=== PATIENT | female | born 1955 | race Caucasian/White ===

== ENCOUNTER 2020-02-15 17:53 | Emergency (ER) | payer OTHER ==
[~2020-02-15] VITALS: Ht 152.4 cm; Wt 97.5 kg
[~2020-02-15 17:53] MED LIST: GLU500 PO; LEVO0.173 PO; SERT50TA PO; SIMV-31 PO
[2020-02-15 18:30] VITALS: BP 115/59
--- NOTE | 2020-02-15 19:22 | NUR ---
CALLED PT NO RESPONSE.
--- NOTE | 2020-02-15 19:34 | NUR ---
TO ED 01, AMBULATORY.
[2020-02-15 19:35] LABS: BASOPHILS % (AUTO) 0.5 % (0.0-2.0); EOSINOPHILS # (AUTO) 0.1 K/uL (0-0.4); EOSINOPHILS % (AUTO) 1.4 % (0.0-4.0); HEMATOCRIT 40.8 % (36-48); HEMOGLOBIN 13.6 g/dL (12.0-16.0); LYMPHOCYTES # (AUTO) 1.7 K/uL (2.5-16.5); MEAN CORPUSCULAR HEMOGLOBIN 28 pg (27-31); MEAN CORPUSCULAR HGB CONC 33 g/dL (33-37); MEAN CORPUSCULAR VOLUME 82.7 fL (80-94); MONOCYTES # (AUTO) 0.5 K/uL (0.8-1.0); MONOCYTES % (AUTO) 6.1 % (1.7-9.3); NEUTROPHILS # (AUTO) 6.4 K/uL (1.8-7.7); PLATELET COUNT (AUTO) 205 K/uL (140-450); RED BLOOD CELL COUNT(AUTO) 4.93 MIL/uL (4.20-5.40); RED CELL DISTRIBUTION WIDTH 14.9 % (11.6-13.7); WHITE BLOOD COUNT (AUTO) 8.8 K/uL (4.8-10.8)
--- NOTE | 2020-02-15 19:41 | NUR ---
XR AT BEDSIDE.
[2020-02-15 19:54] LABS: ALBUMIN 3.3 g/dL (3.4-5.0); ANION GAP 8.6 (8-16); CARBON DIOXIDE 31.2 mmol/L (21-32); CREATININE 0.9 mg/dL (0.6-1.3); POTASSIUM 3.8 mmol/L (3.5-5.1); TOTAL BILIRUBIN 0.3 mg/dL (0.0-1.0)
[2020-02-15] MEDS ORDERED: KETOROLAC 30 MG/ML VIAL IVP ONE (20:00)
[2020-02-15] MEDS ORDERED: PANTOPRAZOLE 40 MG INJ VIAL IVP ONE (20:00)
[2020-02-15] MEDS ORDERED: NACL 0.9% 1,000 ML IV ONE (20:00)
--- NOTE | 2020-02-15 20:20 | NUR ---
64 Y/O FEMALE C/O EPIGASTRIC AND BACK PAIN X 3 DAYS. RATES PAIN 7/10 AND DESCRIBES IT BURNING. ABD IS TENDERNESS THROUGHOUT ENTIRE ABD. ACTIVE BS, ROUND AND SOFT. VSS. A&O X4. NO SOB. DENIES ANY CHEST PAIN. HEART SOUND S1S2 PRESENT. DENIES TAKING ANY PAIN MEDS. STEADY GAIT. DENIES ANY N,V,D, OR DECREASE IN APPETITE. PMH: CHF, DM, PARTIAL THYROID REMOVAL, PERICARDITITS, HTN, HIGH CHOLESTEROL, DEPRESSION. NKA.
--- NOTE | 2020-02-15 20:20 | NUR ---
LUNG SOUNDS CLEAR ALL THROGUHOUT. NO EDEMA PRESENT ON EXTREMETIES.
--- NOTE | 2020-02-15 20:49 | NUR ---
PT TRANSFER TO XR VIA W/C.
--- NOTE | 2020-02-15 21:00 | NUR ---
PT RETURNED BACK FROM XR VIA W/C.
[2020-02-15 21:23] VITALS: BP 121/54
--- NOTE | 2020-02-15 21:23 | NUR ---
Patient discharged with v/s stable. Written and verbal after care instructions given and explained. Patient alert, oriented and verbalized understanding of instructions. Ambulatory with steady gait. All questions addressed prior to discharge. ID band removed. Patient advised to follow up with PMD. Rx of TRAMADOL, MOTRIN, AND PROTONIX given. Patient educated on indication of medication including possible reaction and side effects. Opportunity to ask questions provided and answered.
== END 2020-02-15 21:23 | disposition home or self-care (01) ==
LOC: MED 17:53
DX: K21.9 Gastro-esophageal reflux disease without esophagitis (principal); E78.5 Hyperlipidemia, unspecified; E03.9 Hypothyroidism, unspecified; F41.9 Anxiety disorder, unspecified; F32.9 Major depressive disorder, single episode, unspecified; I10 Essential (primary) hypertension; I50.9 Heart failure, unspecified; R52 Pain, unspecified; Z79.899 Other long term (current) drug therapy
CPT/HCPCS: 36415; 71045; 74022; 80053; 82550; 84484; 85025; 93005; 96374; 96375; 99285; C9113; J1885; J7030; Q0092

== ENCOUNTER 2022-06-08 01:40 | Emergency (ER) | payer OTHER ==
[~2022-06-08] VITALS: Ht 152.4 cm; Wt 99.8 kg
[~2022-06-08 01:40] MED LIST changes: -LEVO0.173 PO; +LISI2.5T12 PO; +SYN.075 PO
[2022-06-08 01:47] VITALS: BP 135/61
--- NOTE | 2022-06-08 01:57 | NUR ---
PT TO CHAIR B
--- NOTE | 2022-06-08 03:09 | NUR ---
PT TAKEN TO BED 5
--- NOTE | 2022-06-08 03:53 | NUR ---
66/F BIB SELF C/C LEFT EYE PAIN AND HEADACHE [id number] S/P METAL BAR FALLING ONTO HER FACE. EYELID CUT AND REPORTS NAUSEA . SWELLING AND DISCOLORATION NOTED. NO BLEEDING AT THIS TIME. PAIN IS 8/10 AND THROBBING. PATIENT AAOX4 AND AMBULATORY. RR APPEAR TO BE EVEN AND UNLABORED. DOESNT APPEAR TO BE IN DISTRESS. BED LOW AND LOCKED. PMHX DM, CHF, COPD NKA
--- NOTE | 2022-06-08 03:53 | NUR ---
Note undone in EDM - 06/08/22 at 0411 by RAZA 66/F BIB SELF C/C LEFT EYE PAIN AND HEADACHE [id number] S/P METAL BAR FALLING ONTO HER FACE. EYELID CUT AND REPORTS NAUSEA . SWELLING AND DISCOLORATION NOTED. NO BLEEDING AT THIS TIME. PAIN IS 8/10 AND THROBBING. PATIENT AAOX4 AND AMBULATORY. RR APPEAR TO BE EVEN AND UNLABORED. DOESNT APPEAR TO BE IN DISTRESS. BED LOW AND LOCKED. RUSLAN SIDE RAILS AND SEIZURE PRECAUTIONS IN PLACE. PMHX DM, CHF, COPD NKA
[2022-06-08] MEDS ORDERED: ACETAMINOPHEN EXTRA STRENGTH 500 MG TAB PO ONE (04:15)
--- NOTE | 2022-06-08 04:25 | NUR ---
PATIENT MEDICATED PER ORDERS. TOLERATED WELL.
--- NOTE | 2022-06-08 04:27 | NUR ---
PT TAKEN TO CT
[2022-06-08] MEDS ORDERED: ACET-9800 PO (04:46)
--- NOTE | 2022-06-08 05:30 | NUR ---
Patient discharged with v/s stable. Written and verbal after care instructions given and explained. Patient alert, oriented and verbalized understanding of instructions. Ambulatory with steady gait. All questions addressed prior to discharge. ID band removed. Patient advised to follow up with PMD. Rx of ACETAMINOPHEN given.
[2022-06-08 05:31] VITALS: BP 135/51
== END 2022-06-08 05:30 | disposition home or self-care (01) ==
LOC: MED 01:40
DX: S01.112A Laceration without foreign body of left eyelid and periocular area, initial encounter (principal); J44.9 Chronic obstructive pulmonary disease, unspecified; I25.10 Atherosclerotic heart disease of native coronary artery without angina pectoris; E03.9 Hypothyroidism, unspecified; J45.909 Unspecified asthma, uncomplicated; W26.8XXA Contact with other sharp object(s), not elsewhere classified, initial encounter; Y93.89 Activity, other specified; Y92.89 Other specified places as the place of occurrence of the external cause; Y99.8 Other external cause status
CPT/HCPCS: 70450; 99284

== ENCOUNTER 2023-08-19 00:58 | Emergency (ER) | payer OTHER ==
[~2023-08-19] VITALS: Ht 152.4 cm; Wt 97.5 kg
[~2023-08-19 00:58] MED LIST changes: +ACET-9800 PO
[2023-08-19 01:02] VITALS: BP 100/51; PULSE 64; RESP 16; TEMP 97.4; O2SAT 98
[2023-08-19] MEDS ORDERED: FAMOTIDINE 20 MG TAB PO ONE (01:40)
[2023-08-19] MEDS ORDERED: ALUMINUM HYD/MAG/SIMETHICONE 30 ML UDC PO ONE (01:40)
[2023-08-19 01:56] LABS: BASOPHILS # (AUTO) 0.1 K/uL (0.00-0.22); BASOPHILS % (AUTO) 0.8 % (0.0-2.0); EOSINOPHILS # (AUTO) 0.2 K/uL (0-0.4); EOSINOPHILS % (AUTO) 1.8 % (0.0-4.0); HEMOGLOBIN 12.8 g/dL (12.0-16.0); LYMPHOCYTES # (AUTO) 2.3 K/uL (2.5-16.5); LYMPHOCYTES % (AUTO) 23.4 % (20.5-51.1); MEAN CORPUSCULAR HEMOGLOBIN 27 pg (27-31); MEAN CORPUSCULAR HGB CONC 33 g/dL (33-37); MEAN CORPUSCULAR VOLUME 82.2 fL (80-94); MONOCYTES # (AUTO) 0.8 K/uL (0.8-1.0); MONOCYTES % (AUTO) 7.9 % (1.7-9.3); NEUTROPHILS # (AUTO) 6.6 K/uL (1.8-7.7); NEUTROPHILS % (AUTO) 66.1 % (42.2-75.2); PLATELET COUNT (AUTO) 195 K/uL (140-450); RED BLOOD CELL COUNT(AUTO) 4.74 MIL/uL (4.20-5.40); RED CELL DISTRIBUTION WIDTH 14.8 % (11.6-13.7); WHITE BLOOD COUNT (AUTO) 9.9 K/uL (4.8-10.8)
[2023-08-19 02:11] LABS: ALANINE AMINOTRANSFERASE 25 U/L (12-78); ALBUMIN 3.2 g/dL (3.4-5.0); ALKALINE PHOSPHATASE 97 U/L (50-136); ANION GAP 9.2 (8-16); ASPARTATE AMINOTRANSFERASE 16 U/L (15-37); CARBON DIOXIDE 27.3 mmol/L (21-32); CHLORIDE 109 mmol/L (98-107); GFR ARICAN-AMERICAN 72 mL/min (>90); GFR NON ARICAN-AMERICAN 59 mL/min (>90); GLUCOSE 139 mg/dL (74-106); LIPASE 29 U/L (16-77); POTASSIUM 3.5 mmol/L (3.5-5.1); SODIUM SERUM 142 mmol/L (136-145); TOTAL BILIRUBIN 0.3 mg/dL (0.0-1.0); TOTAL PROTEIN, SERUM 6.1 g/dL (6.4-8.2); UREA NITROGEN, BLOOD 21 mg/dL (7-18)
[2023-08-19] MEDS ORDERED: FAMO-90 PO (04:32)
[2023-08-19 04:45] VITALS: BP 119/62; PULSE 65; RESP 18; O2SAT 95
== END 2023-08-19 04:45 | disposition home or self-care (01) ==
LOC: MED 00:58
DX: K29.70 Gastritis, unspecified, without bleeding (principal); K21.9 Gastro-esophageal reflux disease without esophagitis; J44.9 Chronic obstructive pulmonary disease, unspecified; E03.9 Hypothyroidism, unspecified; E11.9 Type 2 diabetes mellitus without complications; I50.9 Heart failure, unspecified; Z79.4 Long term (current) use of insulin; Z79.899 Other long term (current) drug therapy
CPT/HCPCS: 36415; 71045; 80053; 83690; 84484; 85025; 93005; 99285

== ENCOUNTER 2023-10-27 20:03 | Observation (INO) | payer OTHER ==
[~2023-10-27] VITALS: Ht 157.5 cm; Wt 80.7 kg
[~2023-10-27 20:03] MED LIST changes: +FAMO-90 PO
[2023-10-27 20:05] VITALS: BP 116/70; PULSE 66; RESP 16; TEMP 97.1; O2SAT 97
[2023-10-27] MEDS ORDERED: NITROGLYCERIN 0.4 MG TAB SL ONE (20:35)
[2023-10-27] MEDS ORDERED: ASPIRIN 81 MG TAB.CHEW PO ONE (21:15)
[2023-10-27 21:41] LABS: BASOPHILS # (AUTO) 0.1 K/uL (0.00-0.22); BASOPHILS % (AUTO) 0.9 % (0.0-2.0); EOSINOPHILS # (AUTO) 0.1 K/uL (0-0.4); EOSINOPHILS % (AUTO) 1.1 % (0.0-4.0); HEMATOCRIT 41.3 % (36-48); LYMPHOCYTES # (AUTO) 2.6 K/uL (2.5-16.5); LYMPHOCYTES % (AUTO) 22.9 % (20.5-51.1); MEAN CORPUSCULAR HEMOGLOBIN 28 pg (27-31); MEAN CORPUSCULAR HGB CONC 34 g/dL (33-37); MEAN CORPUSCULAR VOLUME 81.2 fL (80-94); MONOCYTES # (AUTO) 0.6 K/uL (0.8-1.0); MONOCYTES % (AUTO) 5.7 % (1.7-9.3); NEUTROPHILS # (AUTO) 7.8 K/uL (1.8-7.7); NEUTROPHILS % (AUTO) 69.4 % (42.2-75.2); PLATELET COUNT (AUTO) 205 K/uL (140-450); RED BLOOD CELL COUNT(AUTO) 5.09 MIL/uL (4.20-5.40); RED CELL DISTRIBUTION WIDTH 14.2 % (11.6-13.7); WHITE BLOOD COUNT (AUTO) 11.2 K/uL (4.8-10.8)
[2023-10-27 21:49] LABS: ANION GAP 11.7 (8-16); CALCIUM 8.9 mg/dL (8.5-10.1); CARBON DIOXIDE 27.7 mmol/L (21-32); CREATININE 0.9 mg/dL (0.6-1.3); POTASSIUM 3.4 mmol/L (3.5-5.1)
[2023-10-27 22:22] LABS: FLU A ANTIGEN negative (NEGATIVE); FLU B ANTIGEN NEGATIVE (NEGATIVE)
[2023-10-27] MEDS ORDERED: MAGNESIUM OXIDE 400 MG TAB PO PRN (22:40)
[2023-10-27] MEDS ORDERED: POTASSIUM CHLORIDE 10 MEQ TABER PO PRN (22:40)
[2023-10-27] MEDS ORDERED: MORPHINE SULFATE 4 MG/ML SYR IVP PRN (22:40)
[2023-10-27] MEDS ORDERED: ACETAMINOPHEN 325 MG TAB PO PRN (22:40)
[2023-10-27] MEDS ORDERED: KCL 20 MEQ IN 100 mL PREMIX 200 ML IV PRN (22:40)
[2023-10-27] MEDS ORDERED: ONDANSETRON 4 MG/2 ML VIAL IVP PRN (22:40)
[2023-10-27] MEDS ORDERED: HYDROcodone/APAP 5/325 MG 1 TAB TAB PO PRN (22:40)
[2023-10-27] MEDS ORDERED: DEXTROSE 50% 50 ML SYR IVP PRN (23:10)
[2023-10-27] MEDS ORDERED: INSULIN LISPRO SLIDING SCALE 100 UNITS/ML VIAL SUBQ PRN (23:10)
[2023-10-27 23:20] VITALS: PULSE 60; RESP 18; O2SAT 98
[2023-10-28 04:00] VITALS: BP 115/64; PULSE 57; PULSE 64; RESP 18; TEMP 97.8; O2SAT 98
[2023-10-28 07:29] LABS: ANION GAP 10.1 (8-16); CALCIUM 8.3 mg/dL (8.5-10.1); CARBON DIOXIDE 27.9 mmol/L (21-32); CREATININE 0.6 mg/dL (0.6-1.3)
[2023-10-28] MEDS ORDERED: BLOOD GLUCOSE MONITORING 1 DEV DEV FS SCH (07:30)
[2023-10-28 07:32] LABS: BASOPHILS % (AUTO) 0.4 % (0.0-2.0); EOSINOPHILS # (AUTO) 0.2 K/uL (0-0.4); EOSINOPHILS % (AUTO) 1.8 % (0.0-4.0); HEMATOCRIT 39.6 % (36-48); HEMOGLOBIN 13.3 g/dL (12.0-16.0); LYMPHOCYTES # (AUTO) 2.7 K/uL (2.5-16.5); LYMPHOCYTES % (AUTO) 31.5 % (20.5-51.1); MEAN CORPUSCULAR HEMOGLOBIN 28 pg (27-31); MEAN CORPUSCULAR HGB CONC 34 g/dL (33-37); MEAN CORPUSCULAR VOLUME 81.9 fL (80-94); MONOCYTES # (AUTO) 0.6 K/uL (0.8-1.0); MONOCYTES % (AUTO) 7.1 % (1.7-9.3); NEUTROPHILS % (AUTO) 59.2 % (42.2-75.2); PLATELET COUNT (AUTO) 176 K/uL (140-450); RED BLOOD CELL COUNT(AUTO) 4.83 MIL/uL (4.20-5.40); RED CELL DISTRIBUTION WIDTH 14.1 % (11.6-13.7); WHITE BLOOD COUNT (AUTO) 8.5 K/uL (4.8-10.8)
[2023-10-28 07:43] VITALS: BP 86/36; PULSE 55; RESP 16; TEMP 94.7; O2SAT 98
[2023-10-28 07:47] VITALS: PULSE 55; RESP 16
[2023-10-28 08:00] VITALS: PULSE 55
[2023-10-28 08:26] VITALS: PULSE 76
== END 2023-10-28 12:17 | disposition home or self-care (01) ==
LOC: MED 20:03 → MMU 22:40 → MTU 10-28 00:03
PROVIDERS: ADMIT Internal Medicine; ATTEND Internal Medicine
DX: R07.89 Other chest pain (principal); Z20.822 Contact with and (suspected) exposure to COVID-19; E78.5 Hyperlipidemia, unspecified; E11.9 Type 2 diabetes mellitus without complications; I11.0 Hypertensive heart disease with heart failure; I50.9 Heart failure, unspecified; E03.9 Hypothyroidism, unspecified; F41.9 Anxiety disorder, unspecified; E66.9 Obesity, unspecified; Z79.899 Other long term (current) drug therapy
CPT/HCPCS: 36415; 71045; 80048; 82948; 83880; 84484; 85025; 87081; 87426; 87804; 93005; 96372; 99285; G0378; J1644; J1815

== ENCOUNTER 2024-01-24 16:51 | Emergency (ER) | payer OTHER ==
[~2024-01-24] VITALS: Ht 152.4 cm; Wt 93.2 kg
[~2024-01-24 16:51] MED LIST changes: -ACET-9800 PO
[2024-01-24 16:55] VITALS: BP 128/63; PULSE 68; RESP 18; TEMP 98; O2SAT 100
[2024-01-24 17:46] VITALS: O2SAT 99
[2024-01-24 17:54] LABS: BILIRUBIN,URINE NEGATIVE (NEGATIVE); BLOOD, URINE 3+ (NEGATIVE); COLOR,URINE YELLOW (YELLOW); LEUKOCYTE ESTERASE ,URINE TRACE (NEGATIVE); NITRITE, URINE NEGATIVE (NEGATIVE); PROTEIN,URINE 1+ (NEGATIVE); UGLUCOSE NEGATIVE (NEGATIVE); UROBILINOGEN,URINE 0.2 EU/dL (0.2 - 1)
[2024-01-24 17:55] LABS: APPEARANCE,URINE SLIGHTLY HAZY (CLEAR)
[2024-01-24 17:59] LABS: BACTERIA,URINE 1+ /HPF (None Seen); MUCUS,URINE None Seen /LPF (None Seen); SQUAMOUS EPITHELIAL CELL,UR 0-3 (FEW) /LPF (0-3 (FEW)); WBC,URINE 0-5 /HPF (0-5)
[2024-01-24] MEDS: NACL 0.9% 1,000 ML IV ONE (18:17)
[2024-01-24] MEDS: MORPHINE SULFATE 4 MG/ML SYR IVP ONE (18:19)
[2024-01-24] MEDS: ONDANSETRON 4 MG/2 ML VIAL IVP ONE (18:20)
[2024-01-24] MEDS: KETOROLAC 30 MG/ML VIAL IVP ONE (18:20)
[2024-01-24 18:40] LABS: BASOPHILS # (AUTO) 0.1 K/uL (0.00-0.22); BASOPHILS % (AUTO) 0.5 % (0.0-2.0); EOSINOPHILS % (AUTO) 0.3 % (0.0-4.0); HEMOGLOBIN 13.9 g/dL (12.0-16.0); LYMPHOCYTES # (AUTO) 1.6 K/uL (2.5-16.5); LYMPHOCYTES % (AUTO) 10.7 % (20.5-51.1); MEAN CORPUSCULAR HEMOGLOBIN 28 pg (27-31); MEAN CORPUSCULAR HGB CONC 34 g/dL (33-37); MEAN CORPUSCULAR VOLUME 81.6 fL (80-94); MONOCYTES # (AUTO) 0.7 K/uL (0.8-1.0); MONOCYTES % (AUTO) 4.8 % (1.7-9.3); NEUTROPHILS # (AUTO) 12.8 K/uL (1.8-7.7); NEUTROPHILS % (AUTO) 83.7 % (42.2-75.2); PLATELET COUNT (AUTO) 206 K/uL (140-450); RED BLOOD CELL COUNT(AUTO) 5.02 MIL/uL (4.20-5.40); RED CELL DISTRIBUTION WIDTH 15.1 % (11.6-13.7); WHITE BLOOD COUNT (AUTO) 15.3 K/uL (4.8-10.8)
[2024-01-24 18:50] LABS: ANION GAP 11.6 (8-16); CALCIUM 8.8 mg/dL (8.5-10.1); CARBON DIOXIDE 27.9 mmol/L (21-32); CREATININE 0.9 mg/dL (0.6-1.3); POTASSIUM 3.5 mmol/L (3.5-5.1)
[2024-01-24 18:59] LABS: ALANINE AMINOTRANSFERASE 25 U/L (12-78); ALBUMIN 3.5 g/dL (3.4-5.0); ALKALINE PHOSPHATASE 103 U/L (50-136); ASPARTATE AMINOTRANSFERASE 15 U/L (15-37); BILIRUBIN,DIRECT 0.1 mg/dL (0.0-0.3); TOTAL BILIRUBIN 0.5 mg/dL (0.0-1.0); TOTAL PROTEIN, SERUM 6.6 g/dL (6.4-8.2)
[2024-01-24 21:03] VITALS: BP 156/75; PULSE 60; RESP 16; TEMP 98; O2SAT 99
[2024-01-24] MEDS ORDERED: CEPH-588 PO (21:23)
== END 2024-01-24 21:37 | disposition home or self-care (01) ==
LOC: MED 16:51
DX: N39.0 Urinary tract infection, site not specified (principal); I11.0 Hypertensive heart disease with heart failure; E03.9 Hypothyroidism, unspecified; E11.9 Type 2 diabetes mellitus without complications; Z79.4 Long term (current) use of insulin; Z79.899 Other long term (current) drug therapy
CPT/HCPCS: 36415; 74177; 80048; 80076; 81001; 83690; 83880; 84484; 85025; 93005; 96361; 96374; 96375; 99285; J1885; J2270; J2405; J7030; Q9967